=== PATIENT | female | born 1985 | race Caucasian/White ===

== ENCOUNTER 2024-09-24 10:21 | Day surgery (SDC) | payer OTHER ==
[2024-09-19 15:35] LABS: BILIRUBIN,URINE NEGATIVE (Neg); CLARITY,URINE CLEAR (Clear); COLOR,URINE YELLOW (Yellow); GLUCOSE, URINE NEGATIVE (Neg); KETONES,URINE NEGATIVE (Neg); LEUKOCYTE ESTERASE ,URINE NEGATIVE (Neg); NITRITES, URINE NEGATIVE (Neg); OCCULT BLOOD,URINE SMALL (Neg); PROTEIN,URINE NEGATIVE (Neg); UROBILINOGEN,URINE 0.2 E.U/dL (0.2-1.0)
[2024-09-19 15:39] LABS: BASOPHILS % (AUTO) 0.4 % (0-1); EOSINOPHILS # (AUTO) 0.2 X10'3 (0-0.9); EOSINOPHILS % (AUTO) 1.5 % (0-6); LYMPHOCYTES # (AUTO) 3.3 X10'3 (1.1-4.8); MEAN CORPUSCULAR HGB CONC 34.1 g/dL (33.0-36.5); MEAN CORPUSCULAR VOLUME 90.7 FL (78-98); MEAN PLATELET VOLUME 7.9 FL (7.4-10.4); MONOCYTES # (AUTO) 0.7 X10'3 (0-0.9); MONOCYTES % (AUTO) 6.3 % (2-12); NEUTROPHILS # (AUTO) 6.2 X10'3 (1.8-7.7); NEUTROPHILS % (AUTO) 59.8 % (42-75); PRE OP HEMATOCRIT 39.6 % (35.0-45.0); PRE OP HEMOGLOBIN 13.5 g/dL (12.0-16.0); PRE OP PLATELET COUNT 284 X10'3 (140-440); PRE OP WHITE BLOOD COUNT 10.4 10'3 (4.8-10.8); RED BLOOD COUNT 4.37 X10'6 (4.20-5.60); RED CELL DISTRIBUTION WIDTH 12.9 % (11.5-14.5)
[2024-09-19 15:57] LABS: PRE OP PROTIME 10.3 SECONDS (9.0-12.0)
[2024-09-19 15:58] LABS: UA COLLECTION TYPE CLN CATCH MIDSTREAM
[2024-09-19 16:00] LABS: HCG SERUM QL NEGATIVE
[2024-09-19 16:01] LABS: WBC,URINE 0-4 /HPF (0-4)
[2024-09-19 16:02] LABS: BACTERIA,URINE NONE SEEN /HPF (Neg); RBC,URINE 0-2 /HPF (0-2); SQUAMOUS EPITHELIAL CELL,UR FEW /LPF (FEW)
[2024-09-19 16:11] LABS: ALBUMIN 3.9 G/DL (3.4-5.0); ALBUMIN/GLOBULIN RATIO 1.1 (1.1-1.5); ALKALINE PHOSPHATASE 47 IU/L (46-116); BLOOD UREA NITROGEN 16 MG/DL (7-18); BUN/CREATININE RATIO 22.5 (10.0-20.0); CALCIUM 8.7 MG/DL (8.5-10.1); CHLORIDE 105 MMOL/L (99-107); CREATININE 0.71 MG/DL (0.40-0.90); PRE OP ALT 26 U/L (30-65); PRE OP ANION GAP 8 (8-16); PRE OP AST 19 U/L (10-37); PRE OP BILIRUB, TOTAL 0.2 MG/DL (0.0-1.0); PRE OP GLUCOSE 85 MG/DL (70-104); PRE OP SODIUM 141 MMOL/L (135-145); TOTAL CARBON DIOXIDE 28.4 MMOL/L (24-32); TOTAL PROTEIN 7.3 G/DL (6.4-8.2); eGFR > 90 ML/MIN
[2024-09-24] VITALS (19 sets, daily range): BP systolic 103–132; BP diastolic 55–75; PULSE 60–92; RESP 13–18; TEMP 97.6–98.1; O2SAT 98–100
[~2024-09-24] VITALS: Ht 162.6 cm; Wt 77.0 kg
[~2024-09-24 10:21] MED LIST: MAGN100T6 PO; MULT-1085 PO; OMEG-166 PO; TIRZ2.5P3 SUBCUT
[2024-09-24] MEDS: ringers solution, lacted 1,000 ML IV SCH ×3 (11:16→17:39)
[2024-09-24] MEDS: famotidine 20mg tablet PO ONE (11:16)
[2024-09-24] MEDS: ceFOXitin sod/dextrose 2g/50ml 50 ML IV ONE (11:17)
[2024-09-24] MEDS ORDERED: midazolam 1 mg/ML 2ml injection ONE (11:38)
[2024-09-24] MEDS ORDERED: fentaNYL/PF 50MCG/1 ML 2ML syringe ONE ×2 (11:38→14:04)
[2024-09-24] MEDS ORDERED: acetaminophen 1,000mg/100ml IV 100 ML IV ONE (11:39)
[2024-09-24] MEDS ORDERED: LIDOcaine 2% (20mg/ml) 5ml vial ONE (11:40)
[2024-09-24] MEDS ORDERED: rocuronium 10mg/ml inj IV ONE ×2 (11:40→13:11)
[2024-09-24] MEDS ORDERED: propofol inj 20 ML IV ONE (11:40)
[2024-09-24] MEDS ORDERED: ondansetron/PF 4mg/2ml inj ONE (11:40)
[2024-09-24] MEDS ORDERED: dexamethasone sod phosphate 4mg/ml inj. ONE (11:40)
[2024-09-24] MEDS ORDERED: vasoPRESSIN 20 units/ml inj. ONE (11:43)
[2024-09-24] MEDS ORDERED: clindamycin phosphate 40gm vag cream ONE (11:43)
[2024-09-24] MEDS ORDERED: BUPIVAcaine 2.5mg/ml inj 50ml vial (contains preservative) ONE (11:43)
[2024-09-24] MEDS ORDERED: sevoflurane 250ml liquid IH ONE (12:10)
[2024-09-24] MEDS ORDERED: fentaNYL/PF 50MCG/1 ML 2ML syringe IV PRN ×2 (12:45)
[2024-09-24] MEDS ORDERED: morphine 4 MG/ML inj SYRINge IV PRN (12:45)
[2024-09-24] MEDS ORDERED: hydrALAZINE 20mg/ml inj. IV PRN (12:45)
[2024-09-24] MEDS ORDERED: labetalol 20mg/4ml (5mg/ml) syringe IV PRN (12:45)
[2024-09-24] MEDS: BUPIVAcaine/PF 2.5 mg/ml (0.25%) 30ml vial IJ ONE (13:01)
[2024-09-24] MEDS ORDERED: glycopyrrolate 0.2mg/ml inj ONE (14:05)
[2024-09-24] MEDS ORDERED: neostigmine methylsulfate 1 MG/ML 10ml vial ONE (14:05)
[2024-09-24] MEDS ORDERED: fluoroscein sod 10% (100mg/ml) 5ml vial ONE (15:46)
[2024-09-24] MEDS ORDERED: ketorolac trometh 30MG/ML vial 30 MG/ML VIAL ONE (16:18)
[2024-09-24] MEDS ORDERED: temazepam 15mg capsule PO PRN (16:30)
[2024-09-24] MEDS ORDERED: LORazepam 2 mg/ml vial IV PRN (16:30)
[2024-09-24] MEDS ORDERED: metoclopramide 5 mg/ml inj IV PRN (16:30)
[2024-09-24] MEDS ORDERED: magnesium hydroxide 30ml (MOM) UD suspension PO PRN (16:30)
[2024-09-24] MEDS ORDERED: normal saline 500ml IV soln 500 ML IV PRN (16:30)
[2024-09-24] MEDS ORDERED: ondansetron/PF 4mg/2ml inj IV PRN (16:30)
[2024-09-24] MEDS ORDERED: diphenhydrAMINE 50 mg/ml inj IV PRN (16:30)
[2024-09-24] MEDS: morphine 2 MG/ML inj. syringe IV PRN (16:59)
[2024-09-24] MEDS: ondansetron/PF 4mg/2ml inj IV PRN (17:16)
--- NOTE | 2024-09-24 18:47 | OPERATIVE REPORT ---
DATE OF SURGERY: 09/24/2024 DICTATING PHYSICIAN: Javi Pulido MD PREOPERATIVE DIAGNOSIS: Symptomatic pelvic organ prolapse. POSTOPERATIVE DIAGNOSIS: Symptomatic pelvic organ prolapse. SURGEON: Javi Pulido MD MEDIA PLANNER: Glenroy Lopez MD ANESTHESIOLOGIST: Dr. Ordaz ANESTHESIA: General PROCEDURES: Laparoscopic-assisted vaginal hysterectomy, uterosacral vaginal vault suspension, anterior and posterior repairs, and cystoscopy. ESTIMATED BLOOD LOSS: 200 mL. COMPLICATIONS: None. INDICATIONS: The patient is a 39-year-old female with symptomatic pelvic organ prolapse including moderate uterovaginal prolapse, grade 3/3 cystocele, and grade 3/3 rectocele. The patient desired correction. The patient desired surgical management as noted above. LAPAROSCOPIC FINDINGS: Grossly normal-appearing uterus and ovaries. Fallopian tubes absent consistent with prior salpingectomy for sterilization. TECHNIQUE: The patient was taken to the OR where general anesthesia was found to be adequate. She was placed in the lithotomy position. She was prepped and draped in the usual sterile fashion. A surgical pause was performed per protocol. The cervix was grasped with a single-tooth tenaculum, placed under traction and infiltrated with a dilute solution of vasopressin. A PREMA manipulator was placed transcervically and secured in the usual fashion. A transurethral catheter was placed. We changed gloves. A Veress needle was introduced through the umbilicus and the abdomen was insufflated with CO2 gas to 15 mmHg. The Veress needle was removed and a 5 mm trocar was placed through the umbilicus. A second 5 mm port was then placed at the right lower quadrant and an 8 mm port was placed at the left lower quadrant. Pelvic organs were inspected with findings as noted above. In view of the grossly normal-appearing ovaries, we proceeded to a hysterectomy with the preservation of the ovaries per the patient's desires. The right uteroovarian ligament was identified and with assistance of the LigaSure device, coagulated and divided. The incision was extended to include the right round ligament and the incision was then extended inferiorly along the anterior and posterior leaves of the broad ligament to the level of the cardinal ligament. The right uterine vessels were then identified, coagulated, and divided. The entire procedure was then duplicated on the left aspect of the uterus. The vesicouterine peritoneum was then identified and entirely transversely coagulated and divided with the LigaSure device. The bladder was dissected off bluntly exposing the cervix. Anterior and posterior colpotomies were then performed sequentially with assistance of monopolar coagulating current through a spatula. The uterosacral ligaments were then identified bilaterally and tagged for later identification. The CO2 gas was allowed to egress and proceeded to the vaginal aspect of the surgery. The PREMA manipulator was removed. Anterior and posterior transvaginal wall retractors were placed. The uterosacral ligaments were then sequentially and bilaterally clamped, cut, and suture ligated with 0 Vicryl sutures. In this fashion, the uterus was completely amputated and extracted transvaginally without difficulty. The uterosacral ligaments were then sequentially suture ligated to the right and left margins of the vaginal cuff with 0 Ethibond sutures. The vaginal cuff was then reapproximated with [id number] #0 Vicryl sutures and the skin was closed in a similar fashion. At this point, we identified the cystocele. An incision was made along the midline with Metzenbaum scissors. T-clamps were placed bilaterally along the incision for traction and the pubovesical fascia was dissected off bluntly. Plicating sutures were then placed along the length of the incision with 2-0 Vicryl sutures. The excess vaginal epithelium was trimmed away and the skin was closed with a running 2-0 Vicryl suture. We then turned our attention to the rectocele. The length of the rectocele was delineated and the vaginal skin was divided along the midline. T-clamps were placed along the incision for traction. The rectovaginal fascia was dissected off bluntly. Plicating sutures with #0 Vicryl were placed along the incision. The excess vaginal epithelium was trimmed away and the vaginal mucosa was reapproximated with a running 2-0 Vicryl suture. Oozing was noted posteriorly and FloSeal was applied to the incision. At this point, fluorescent dye was administered through the patient's IV. Cystoscopy was performed confirming ureteral patency bilaterally with injection of fluorescent stained urine sequentially. At this point, vaginal packing was placed and a transurethral catheter was replaced. We changed gloves a second time and proceeded to the final laparoscopic inspection. Again, the abdomen was insufflated with CO2 gas to 15 mmHg. Hemostasis was confirmed throughout the pelvis. Surgicel was applied to some area of oozing along the left margin of the vaginal cuff with excellent hemostasis obtained. A solution of Marcaine and saline was then freely sprayed over the dome of the liver. The CO2 gas was allowed to egress, no bleeding was noted. All trocars were removed. The skin incisions were sequentially closed with 4-0 Monocryl sutures subcuticularly and sealed off with Dermabond. Sponge, lap, instrument, and needle counts reported correct. COMPLICATIONS: None. PATHOLOGY: Uterus with attached cervix. DISPOSITION: The patient was taken to the recovery room in stable condition. Javi Pulido MD TID: [id number] RECEIPT: [id number] ETELVINA/MISAEL
[2024-09-24] MEDS: HYDROcodone/acetaminophen 10/325mg tab PO PRN ×2 (19:32→23:51)
[2024-09-24] MEDS: docusate sod 100mg capsule PO SCH (19:32)
[2024-09-24] MEDS: ketorolac trometh 30MG/ML vial 30 MG/ML VIAL IV PRN (21:25)
[2024-09-25 02:00] VITALS: BP 165/55; PULSE 59; RESP 15; TEMP 98.7; O2SAT 98
[2024-09-25 04:59] LABS: BASOPHILS % (AUTO) 0.1 % (0-1); EOSINOPHILS % (AUTO) 0 % (0-6); HEMATOCRIT 37.1 % (35.0-45.0); HEMOGLOBIN 12.5 g/dl (12.0-16.0); LYMPHOCYTES # (AUTO) 2.2 X10'3 (1.1-4.8); LYMPHOCYTES % (AUTO) 12.6 % (21-51); MEAN CORPUSCULAR HEMOGLOBIN 30.7 PG (27.0-31.0); MEAN CORPUSCULAR HGB CONC 33.8 g/dL (33.0-36.5); MEAN CORPUSCULAR VOLUME 90.8 FL (78-98); MEAN PLATELET VOLUME 8.2 FL (7.4-10.4); MONOCYTES % (AUTO) 5.8 % (2-12); NEUTROPHILS # (AUTO) 14.5 X10'3 (1.8-7.7); NEUTROPHILS % (AUTO) 81.5 % (42-75); PLATELET COUNT 234 X10'3 (140-440); RED BLOOD COUNT 4.09 X10'6 (4.20-5.60); RED CELL DISTRIBUTION WIDTH 12.8 % (11.5-14.5); WHITE BLOOD COUNT 17.7 X10'3 (4.5-11.0)
[2024-09-25 05:17] LABS: ALBUMIN 3.3 G/DL (3.4-5.0); ANION GAP 8 (8-16); BLOOD UREA NITROGEN 9 MG/DL (7-18); BUN/CREATININE RATIO 12.3 (10.0-20.0); CALCIUM 8.4 MG/DL (8.5-10.1); CHLORIDE 106 MMOL/L (99-107); CREATININE 0.73 MG/DL (0.40-0.90); GLUCOSE 108 MG/DL (70-104); POTASSIUM 4.1 MMOL/L (3.5-5.1); SODIUM 140 MMOL/L (135-145); TOTAL CARBON DIOXIDE 26.1 MMOL/L (24-32); eCRCL 88 ML/MIN; eGFR 88 ML/MIN
[2024-09-25 06:29] VITALS: BP 107/61; PULSE 58; RESP 13; TEMP 98.3; O2SAT 97
[2024-09-25 11:00] VITALS: BP 119/61; PULSE 52; RESP 18; TEMP 97.7; O2SAT 100
--- NOTE | 2024-09-25 12:41 | DISCHARGE SUMMARY ---
DATE OF DISCHARGE: 09/24/2024 DICTATING PHYSICIAN: Javi Pulido MD ADMISSION DIAGNOSIS: The patient was admitted for surgical management of pelvic organ prolapse. DISCHARGE DIAGNOSES: Status post laparoscopic-assisted vaginal hysterectomy, uterosacral vaginal vault suspension, anterior and posterior repairs, and cystoscopy. HOSPITAL COURSE: On 09/24, the patient was taken to the OR where the above procedures were performed without complications. Her blood loss was averaged. Her postoperative course has been uncomplicated, she is ambulating without difficulty, tolerating a regular diet, she has voided and deemed ready for discharge home today. PHYSICAL EXAMINATION: ABDOMEN: Soft, appropriately mildly distended for postop day 1. Her incisions are clean, dry, and intact. PELVIC: Deferred. VITAL SIGNS: She is afebrile. Blood pressure is 107/61, pulse is 58, respiratory rate of 13, saturating 97% on room air. SIGNIFICANT LAB RESULTS: The patient's preoperative hemoglobin was 13.5. Her current hemoglobin is 12.5. Current platelet count is 234. Chemistry panel shows a creatinine of 0.73. ASSESSMENT: Stable on postop day 1 and deemed ready for discharge home. PLAN: To discharge home today. FOLLOWUP: She will follow up in my office in 2 weeks. DISCHARGE MEDICATIONS: Include pain medications as well as a stool softener. The patient will also resume her outpatient medications. DIET: The patient will continue a regular diet. ACTIVITY: She has been instructed to observe 6 weeks of pelvic rest and not to lift objects over 10 pounds. DISPOSITION: The patient will be discharged home today in improved condition. Javi Pulido MD TID: [id number] RECEIPT: [id number] ETELVINA/MISAEL
--- NOTE | 2024-09-25 17:53 | PATHOLOGY REPORT ---
[facility] [address] [place] [address] SURGICAL PATHOLOGY REPORT CaseNumber: [id number] Surgeon:Javi Pulido M.D. CLINICAL INFORMATION CLINICAL INFORMATION: Bleeding; prolapse; retention. DIAGNOSIS DIAGNOSIS: UTERUS; LAPAROSCOPIC-ASSISTED VAGINAL HYSTERECTO CERVIX: - REACTIVE ENDOCERVIX AND SQUAMOUS MUCOSA. - NEGATIVE FOR DYSPLASIA. ENDOMETRIUM: - BENIGN SECRETORY ENDOMETRIUM. MYOMETRIUM: - NO SIGNIFICANT HISTOPATHOLOGIC ABNORMALITY. SEROSA: - PATCHY FIBROUS ADHESIONS. MICROSCOPIC DESCRIPTION MICROSCOPIC DESCRIPTION: 5 H&E-stained slides are reviewed. The sections of cervix show mildly infla med squamous mucosa and endocervical mucosa with reactive squamous metaplasia. I do not see convinci ng evidence of dysplasia. The stroma shows patchy mixed inflammation and a few small submillimeter n abothian cysts. The sections of endometrium show a secretory lining characterized by convoluted glan ds lined by a monolayer of bland eosinophilic columnar cells. There are abundant secretions within t he glands, and the stroma is edematous. I see no evidence of adenomyosis. The sections of serosa sh ow patchy fibrous adhesions. GROSS DESCRIPTION GROSS DESCRIPTION: Received in a container of formalin labeled with the patient's name, number, and " uterus" is a 105 g uterus with attached cervix. The uterine corpus measures 6 x 5 x 5 cm. The hand bender d cervix measures 4 cm long by 2.5 cm in diameter. The cervical loss is multiparous. The serosa is sm ooth, shiny, and pink-borja. Sectioning reveals a smooth, red-borja endometrium which measures up to 0.4 cm thick. Sectioning the myometrium fails to reveal areas of nodularity; however, the myometrium is s omewhat trabeculated with blood filled cystic structures suggestive of adenomyosis. Sectioning the ce rvix reveals a smooth, glistening, escobar-white mucosa without areas of ulceration. Sections are submit catherine as follows: A1) CervixA2-A4) Endo and myometriumA5) Serosa The time at which the specimen was removed was 1348. The time at which the specimen was placed in [facility] was 1350. Electronically signed by: Portillo Hayes, 09/25/2024 5:19:00 PM
== END 2024-09-25 14:05 | disposition home or self-care (01) ==
LOC: PRE-OP 10:21 → SUR 3N 16:28 → PAS 09-25 14:05
PROVIDERS: ATTEND Obstetrics & Gynecology Obstetrics
DX: N81.4 Uterovaginal prolapse, unspecified (principal); N81.89 Other female genital prolapse; I10 Essential (primary) hypertension; Z98.51 Tubal ligation status; Z79.01 Long term (current) use of anticoagulants; Z79.899 Other long term (current) drug therapy; Z98.890 Other specified postprocedural states
CPT/HCPCS: 36415; 57260; 57425; 58550; 80048; 80053; 81001; 82948; 84703; 85025; 85610; 85730; 86885; 86900; 86901; 87081; J0131; J0694; J1100; J1885; J2003; J2250; J2270; J2405; J2704; J2710; J3010; J3490; J7030; J7120; Z7506; Z7508; Z7512; A4314; A4618; A7000; G0378